=== PATIENT | female | born 1950 | race Caucasian/White ===

== ENCOUNTER 2025-07-04 18:25 | Emergency (ER) | payer MEDICARE, MEDICAID ==
[~2025-07-04 18:25] MED LIST: ADMELOG100 UNIT/1 SQ; DIVALPROEX SOD250 MG PO; LANTUS100 UNIT/1 SC; NAMENDA-5 PO; RIVASTIGMINE1 EACH T
[2025-07-04 19:29] LABS: BASO # 0.1 10*3/uL (0.0-0.1); BASO % 0.3 % (0.0-1.0); EOS # 0.2 10*3/uL (0.0-0.4); EOS % 1.4 % (1.0-4.0); MEAN CELL VOLUME 88.7 fl (81.0-99.0); MEAN CORPUSCULAR HGB 28.8 pg (27.0-31.0); MEAN PLATELET VOLUME 10.0 fl (9.6-12.3); MONO # 0.9 10*3/uL (0.1-1.0); MONO % 5.7 % (3.0-9.0); NEUT # 10.6 10*3/uL (2.3-7.9); NEUT % 68.3 % (47.0-73.0); NUCLEATED RED BLOOD CELL 0.0 % (0.0-0.0); NUCLEATED RED BLOOD CELL 0.0 10*3/uL (0.0-0.0); PLATELET COUNT AUTOMATED 420 10*3/uL (130-400); RED CELL DISTRI WIDTH 12.7 % (0-14.5)
[2025-07-04 19:55] LABS: BUN 27 mg/dl (9-23); CPK 33 U/L (34-171)
== END 2025-07-04 20:34 | disposition home or self-care (01) ==
LOC: ED 18:25
PROVIDERS: Nurse Practitioner Family
DX: E11.65 Type 2 diabetes mellitus with hyperglycemia (principal); D72.829 Elevated white blood cell count, unspecified; W19.XXXA Unspecified fall, initial encounter; Y93.89 Activity, other specified; Y92.89 Other specified places as the place of occurrence of the external cause; Y99.8 Other external cause status